=== PATIENT | female | born 1965 | race Caucasian/White ===

== ENCOUNTER 2018-02-08 10:06 | Emergency (ER) | payer OTHER ==
[~2018-02-08] VITALS: Ht 165.1 cm; Wt 81.8 kg
[2018-02-08 10:49] LABS: EOS # 0.1 (0.04-0.40); EOS % 1.9 % (1.0-5.0); HEMATOCRIT 42.9 % (37.0-47.0); HEMOGLOBIN 14.2 g/dL (12.5-16.0); LYMPH# 1.6 (1.50-4.00); MEAN CELL VOLUME 94 fl (78-100); MEAN CORPUSCULAR HEMOGLOBIN 31 pg (27-31); MEAN CORPUSCULAR HGB CONC 33 g/dL (33-37); MEAN PLATELET VOLUME 9.1 fl (7.4-10.4); MONO # 0.4 (0.20-0.80); PLATELET COUNT 185 K/mm3 (130-400); RED BLOOD COUNT 4.55 M/mm3 (4.10-5.30); RED CELL DISTRIBUTION WIDTH 12.8 % (11.5-14.5); WHITE BLOOD COUNT 5.1 K/mm3 (4.8-10.8)
[2018-02-08 11:04] LABS: CALCIUM 9.4 mg/dL (8.4-10.2); POTASSIUM 3.9 mmol/L (3.6-5.0); TOTAL BILIRUBIN 0.9 mg/dL (0.2-1.3); TOTAL PROTEIN 6.9 g/dL (6.3-8.2)
[2018-02-08] MEDS ORDERED: CYCLOBENZAPRINE10 M1 PO (12:01)
[2018-02-08 12:08] VITALS: BP 126/61
== END 2018-02-08 12:11 | disposition home or self-care (01) ==
LOC: ED 10:06
PROVIDERS: Nurse Practitioner Primary Care
DX: M25.511 Pain in right shoulder (principal)

== ENCOUNTER → 2018-02-21 | Outpatient (CLI) | payer OTHER ==
[2018-02-08 12:08] VITALS: BP 126/61
[~2018-02-21] MED LIST: CYCLOBENZAPRINE10 M1 PO
== END ==
LOC: RAD 12:51
DX: J84.10 Pulmonary fibrosis, unspecified (principal); I07.1 Rheumatic tricuspid insufficiency; I35.8 Other nonrheumatic aortic valve disorders; I37.1 Nonrheumatic pulmonary valve insufficiency; R91.1 Solitary pulmonary nodule; I34.1 Nonrheumatic mitral (valve) prolapse
CPT/HCPCS: Q9967

== ENCOUNTER → 2018-07-25 | Outpatient (CLI) | payer OTHER ==
[2018-07-25 16:13] LABS: EOS # 0.2 (0.04-0.40); EOS % 2.1 % (1.0-5.0); HEMATOCRIT 43.2 % (37.0-47.0); LYMPH# 2.2 (1.50-4.00); MEAN CELL VOLUME 96 fl (78-100); MEAN CORPUSCULAR HEMOGLOBIN 31 pg (27-31); MEAN CORPUSCULAR HGB CONC 32 g/dL (33-37); MEAN PLATELET VOLUME 9.5 fl (7.4-10.4); MONO # 0.5 (0.20-0.80); NEU # 4.3 (1.40-6.50); PLATELET COUNT 199 K/mm3 (130-400); RED CELL DISTRIBUTION WIDTH 13.1 % (11.5-14.5); WHITE BLOOD COUNT 7.1 K/mm3 (4.8-10.8)
[2018-07-25 16:28] LABS: ALBUMIN 4.3 g/dL (3.5-5.0); CALCIUM 10.2 mg/dL (8.4-10.2); POTASSIUM 4.1 mmol/L (3.6-5.0); TOTAL BILIRUBIN 0.5 mg/dL (0.2-1.3); TOTAL PROTEIN 7.2 g/dL (6.3-8.2)
== END ==
LOC: LAB 15:44
PROVIDERS: Internal Medicine
DX: Z00.00 Encounter for general adult medical examination without abnormal findings (principal)

== ENCOUNTER → 2019-05-16 | Outpatient (CLI) | payer BC | LOC: RAD 16:35 | DX: M79.672 Pain in left foot (principal) ==

== ENCOUNTER → 2019-10-10 | Outpatient (CLI) | payer BC ==
[2019-10-10 16:29] LABS: EOS # 0.4 (0.04-0.40); EOS % 5.7 % (1.0-5.0); HEMOGLOBIN 14.1 g/dL (12.5-16.0); LYMPH# 1.7 (1.50-4.00); MEAN CELL VOLUME 96 fl (78-100); MEAN CORPUSCULAR HEMOGLOBIN 32 pg (27-31); MEAN CORPUSCULAR HGB CONC 33 g/dL (33-37); MEAN PLATELET VOLUME 9.3 fl (7.4-10.4); MONO # 0.4 (0.20-0.80); NEU # 3.8 (1.40-6.50); PLATELET COUNT 202 K/mm3 (130-400); RED BLOOD COUNT 4.47 M/mm3 (4.10-5.30); RED CELL DISTRIBUTION WIDTH 13.4 % (11.5-14.5); WHITE BLOOD COUNT 6.3 K/mm3 (4.8-10.8)
[2019-10-10 16:36] LABS: ALBUMIN 4.3 g/dL (3.5-5.0); POTASSIUM 4.3 mmol/L (3.5-5.1)
[2019-10-10 16:37] LABS: CALCIUM 9.9 mg/dL (8.3-10.5)
[2019-10-10 16:38] LABS: TOTAL PROTEIN 7.1 g/dL (6.4-8.3)
[2019-10-10 16:40] LABS: TOTAL BILIRUBIN 0.6 mg/dL (0.2-1.2)
[2019-10-10 16:45] LABS: MAGNESIUM 1.94 mg/dL (1.60-2.60)
[2019-10-10 18:12] LABS: ERYTHROCYTE SEDIMENTATION RATE 4 mm/hr (0-30)
== END ==
LOC: RAD 16:08
PROVIDERS: Internal Medicine
DX: Z00.00 Encounter for general adult medical examination without abnormal findings (principal); M81.0 Age-related osteoporosis without current pathological fracture; I07.1 Rheumatic tricuspid insufficiency; R07.9 Chest pain, unspecified; R06.00 Dyspnea, unspecified

== ENCOUNTER → 2019-10-12 | Outpatient (CLI) | payer BC | LOC: VAS 16:35 → RAD 16:45 | DX: Z00.00 Encounter for general adult medical examination without abnormal findings (principal); I08.1 Rheumatic disorders of both mitral and tricuspid valves; I31.3 Pericardial effusion (noninflammatory); M81.0 Age-related osteoporosis without current pathological fracture; R07.9 Chest pain, unspecified; R06.00 Dyspnea, unspecified ==

== ENCOUNTER → 2019-10-20 | Outpatient (CLI) | payer BC | LOC: CARDLAB 07:55 → CARDREHAB 09:52 | DX: Z00.00 Encounter for general adult medical examination without abnormal findings (principal); M81.0 Age-related osteoporosis without current pathological fracture; I07.1 Rheumatic tricuspid insufficiency; R06.00 Dyspnea, unspecified; R07.9 Chest pain, unspecified | CPT/HCPCS: A9500 ==

== ENCOUNTER → 2019-11-16 | Outpatient (CLI) | payer BC | LOC: MAMMO 08:22 | DX: Z13.820 Encounter for screening for osteoporosis (principal); M85.852 Other specified disorders of bone density and structure, left thigh; K86.2 Cyst of pancreas; N20.0 Calculus of kidney; J84.10 Pulmonary fibrosis, unspecified | CPT/HCPCS: Q9967 ==

== ENCOUNTER → 2020-04-02 | Outpatient (CLI) | payer BC | LOC: LAB 18:48 | DX: N39.0 Urinary tract infection, site not specified (principal) ==

== ENCOUNTER → 2020-04-09 | Outpatient (CLI) | payer BC ==
[2020-04-09 12:38] LABS: URINE APPEARANCE CLEAR; URINE BILIRUBIN NEGATIVE (NEGATIVE); URINE BLOOD NEGATIVE (NEGATIVE); URINE COLOR YELLOW; URINE GLUCOSE NEGATIVE (NEGATIVE); URINE KETONE NEGATIVE (NEGATIVE); URINE LEUKOCYTE ESTERASE NEGATIVE (NEGATIVE); URINE NITRATE NEGATIVE (NEGATIVE); URINE PROTEIN(semi-quant) TRACE mg/dL (NEGATIVE); URINE UROBILINOGEN NORMAL (NORMAL)
== END ==
LOC: RAD 11:19
PROVIDERS: Internal Medicine
DX: N02.9 Recurrent and persistent hematuria with unspecified morphologic changes (principal)

== ENCOUNTER → 2020-11-05 | Outpatient (CLI) | payer BC | LOC: RAD 10:00 | DX: I65.29 Occlusion and stenosis of unspecified carotid artery (principal) ==

== ENCOUNTER → 2021-01-15 | Outpatient (CLI) | payer BC | LOC: MAMMO 13:40 | DX: Z12.31 Encounter for screening mammogram for malignant neoplasm of breast (principal) ==

== ENCOUNTER → 2021-12-02 | Outpatient (CLI) | payer BC | LOC: RAD 11:00 | DX: M81.0 Age-related osteoporosis without current pathological fracture (principal) ==

== ENCOUNTER → 2022-01-06 | Outpatient (CLI) | payer BC | LOC: MAMMO 12:53 | DX: Z12.31 Encounter for screening mammogram for malignant neoplasm of breast (principal) ==

== ENCOUNTER → 2022-01-08 | Outpatient (CLI) | payer BC | LOC: RAD 13:22 | DX: N60.01 Solitary cyst of right breast (principal) ==

== ENCOUNTER → 2022-02-26 | Outpatient (CLI) | payer BC | LOC: RAD 14:15 | DX: G31.9 Degenerative disease of nervous system, unspecified (principal); Z86.69 Personal history of other diseases of the nervous system and sense organs | CPT/HCPCS: A9575 ==